=== PATIENT | male | born 2000 | race Caucasian/White ===

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

== ENCOUNTER 2020-07-09 22:26 | Emergency (ER) | payer OTHER ==
[~2020-07-09] VITALS: Ht 175.3 cm; Wt 156.2 kg
[2020-07-10] MEDS ORDERED: FLUORESCEIN OPHTH 1 MG STRIP OU ONE (01:10)
[2020-07-10] MEDS ORDERED: TETRACAINE 0.5% OPHTH SOLN 4ML OU ONE (01:10)
[2020-07-10] MEDS ORDERED: KETOROLAC 0.5% OPHTH SOLN OS ONE (01:30)
[2020-07-10] MEDS ORDERED: ACUL0.5S OS (01:36)
[2020-07-10 02:04] VITALS: BP 134/90
== END 2020-07-10 01:55 | disposition home or self-care (01) ==
LOC: M ED 22:26
DX: H11.32 Conjunctival hemorrhage, left eye (principal); F17.200 Nicotine dependence, unspecified, uncomplicated

== ENCOUNTER 2024-03-12 09:29 | Emergency (ER) | payer OTHER, SELFPAY ==
[~2024-03-12] VITALS: Ht 177.8 cm; Wt 178.9 kg
[~2024-03-12 09:29] MED LIST changes: +ACUL0.5S OS
[2024-03-12 11:36] LABS: BASO # 0.1 10^3/uL (0.0-0.2); BASO % 0.6 % (0.0-1.0); EOS # 0.3 10^3/uL (0.0-0.5); EOS % 3.1 % (0.0-3.0); HEMATOCRIT 42.5 % (42.0-52.0); HEMOGLOBIN 13.9 g/dl (13.5-17.5); LYMPH # 2.7 10^3/uL (1.5-5.0); LYMPH % 34.3 % (24.0-44.0); MEAN CORPUSCULAR HEMOGLOBIN 26.3 pg (27.0-33.0); MEAN CORPUSCULAR HGB CONC 32.7 g/dl (32.0-36.5); MEAN CORPUSCULAR VOLUME 80.5 fl (80.0-96.0); MONO # 0.7 10^3/uL (0.0-0.8); NEUTROPHILS # 4.2 10^3/uL (1.5-8.5); NEUTROPHILS % 52.5 % (36.0-66.0); PLATELET COUNT, AUTOMATED 249 10^3/uL (150-450); RED BLOOD COUNT 5.28 10^6/uL (4.30-6.10)
[2024-03-12 11:43] LABS: ERYTHROCYTE SEDIMENTATION RATE 17 mm/hr (0-15)
[2024-03-12 12:12] LABS: BLOOD UREA NITROGEN 15 MG/DL (9-23); C REACTIVE PROTEIN QUANTITATIV 0.85 MG/DL (<1.0); CALCIUM LEVEL 9.2 MG/DL (8.5-10.1); CARBON DIOXIDE LEVEL 28 MMOL/L (20-31); CHLORIDE LEVEL 105 MMOL/L (98-107); CREATININE FOR GFR 0.98 MG/DL (0.70-1.30); GLOMERULAR FILTRATION RATE > 60.0 (>60); GLUCOSE, FASTING 86 MG/DL (60-100); POTASSIUM SERUM 4.3 MMOL/L (3.5-5.1); SODIUM LEVEL 143 MMOL/L (136-145)
[2024-03-12 12:31] LABS: PROTHROMBIN TIME 13.5 SECONDS (12.5-14.5)
[2024-03-12] MEDS ORDERED: CEPH500C PO ×2 (12:38→16:36)
[2024-03-12 12:49] VITALS: BP 142/96; TEMP 97.6; O2SAT 100
[2024-03-12] MEDS ORDERED: ACUL0.5S OS (16:36)
== END 2024-03-12 12:50 | disposition home or self-care (01) ==
LOC: M ED 09:29
DX: L66.2 Folliculitis decalvans (principal); L59.0 Erythema ab igne [dermatitis ab igne]; F17.200 Nicotine dependence, unspecified, uncomplicated; Z79.2 Long term (current) use of antibiotics; Z79.899 Other long term (current) drug therapy